=== PATIENT | female | born 1955 | race Caucasian/White ===

== ENCOUNTER → 2021-03-28 | Outpatient (CLI) | payer MEDICARE | END | disposition home or self-care (01) | LOC: CFH 10:08 | PROVIDERS: ATTEND Nurse Practitioner | DX: Z12.31 Encounter for screening mammogram for malignant neoplasm of breast (principal); M85.89 Other specified disorders of bone density and structure, multiple sites; R13.13 Dysphagia, pharyngeal phase; E04.1 Nontoxic single thyroid nodule; E07.89 Other specified disorders of thyroid | CPT/HCPCS: 76536; 77063; 77067; 77080 ==